=== PATIENT | male | born 1965 | race African-American/Black ===

== ENCOUNTER 2022-10-20 12:28 | Emergency (ER) | payer MEDICAID ==
[~2022-10-20] VITALS: Ht 167.6 cm; Wt 87.0 kg
[2022-10-20 12:33] VITALS: O2SAT 100
[2022-10-20 14:01] VITALS: BP 113/72; PULSE 76; RESP 18; TEMP 98.1
== END 2022-10-20 14:02 | disposition home or self-care (01) ==
LOC: ER 12:46
DX: R56.9 Unspecified convulsions (principal); I10 Essential (primary) hypertension; Z91.148 Patient's other noncompliance with medication regimen for other reason
CPT/HCPCS: 82962; 99283